=== PATIENT | female | born 1985 ===

== ENCOUNTER 2017-04-29 08:23 | Emergency (ER) | payer OTHER ==
[2017-04-29 08:36] VITALS: O2SAT 100
--- NOTE | 2017-04-29 09:12 | C.PDOC ---
History Of Present Illness 31 year old female presents to ED with complaints of right shoulder pain that began 1 week ago. Patient describes pain as aching, radiates to right neck and upper back. She states pain was mild at first, then it gradually worsened. Patient believes pain is secondary to work and heavy lifting. Patient is right hand dominant. Denies any fall or numbness. Patient states she took Advil with mild relief. Time Seen by Provider: 04/29/17 08:32 Chief Complaint (Nursing): Upper Extremity Problem/Injury History Per: Patient History/Exam Limitations: no limitations Onset/Duration Of Symptoms: Days (7) Current Symptoms Are (Timing): Still Present Quality: Aching Exacerbating Factor(s): Nothing Recent travel outside of the [place]: No Past Medical History Reviewed: Historical Data, Nursing Documentation, Vital Signs Vital Signs: Last Vital Signs Temp 98.5 F 04/29/17 09:46 Pulse 68 04/29/17 09:46 Resp 16 04/29/17 09:46 BP 131/80 04/29/17 09:46 Pulse Ox 100 04/29/17 10:12 - Medical History PMH: Anemia, Asthma, Hypothyroidism Surgical History: No Surg Hx Family History: States: Unknown Family Hx - Social History Hx Tobacco Use: No Hx Alcohol Use: Yes Hx Substance Use: No - Immunization History Hx Tetanus Toxoid Vaccination: No Hx Influenza Vaccination: No Hx Pneumococcal Vaccination: No Review Of Systems Constitutional: Negative for: Fever, Chills Cardiovascular: Negative for: Chest Pain Gastrointestinal: Negative for: Nausea, Vomiting, Diarrhea Musculoskeletal: Positive for: Shoulder Pain (Right; radiating to right neck and upper back) Neurological: Negative for: Weakness, Numbness Physical Exam - Physical Exam Appears: Well, Non-toxic, No Acute Distress Skin: Normal Color, Warm, Dry Head: Atraumatic, Normacephalic Eye(s): bilateral: Normal Inspection Oral Mucosa: Moist Neck: Normal ROM, Supple Chest: Symmetrical, No Tenderness Cardiovascular: Rhythm Regular Respiratory: No Rales, No Rhonchi, No Wheezing Gastrointestinal/Abdominal: Soft, No Tenderness Extremity: Tenderness (right trapezius muscle and right lateral shoulder), No Deformity (right arm), No Swelling, Other (Pain with abduction ) Pulses: Right Radial: Normal Neurological/Psych: Oriented x3, Normal Speech Gait: Steady ED Course And Treatment O2 Sat by Pulse Oximetry: 100 (RA) Pulse Ox Interpretation: Normal - Other Rad Right Shoulder X-Ray X-Ray: Viewed By Me, Read By Radiologist Interpretation: PROCEDURE: Radiographs of the Right Shoulder. HISTORY: pain right shoulder x 1 week. COMPARISON: No prior. FINDINGS: BONES: Normal. No fracture. JOINTS: Normal. Glenohumeral and acromioclavicular joints preserved. No osteoarthritis. SOFT TISSUES: Normal. OTHER FINDINGS: None. IMPRESSION: No evidence of acute fracture or dislocation. Medical Decision Making Medical Decision Making: Ordered X-Ray of right shoulder. Administered Toradol and Flexeril. Shoulder xray was normal, no arthritic changes, fracture or dislocation. Arm sling applied by RN Patient reported pain improving. Recommend motrin and flexeril as needed. Advised to follow up with orthopedic if pain persists. Disposition Counseled Patient/Family Regarding: Diagnosis, Need For Followup, Rx Given - Disposition Referrals: Bernard Mcgill MD [Staff Provider] - Disposition: HOME/ ROUTINE Disposition Time: 09:45 Condition: STABLE Additional Instructions: Your prescription was sent to [facility]'s pharmacy Please apply ice to area 15 minutes three times a day. Take Motrin as needed for pain every 6 hours, with food to not upset stomach. Follow up with orthopedic if pain persists over one week. 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 - Scribe Statement The provider has reviewed the documentation as recorded by the Karla Pires All medical record entries made by the Abidaibkentrell were at my direction and personally dictated by me. I have reviewed the chart and agree that the record accurately reflects my personal performance of the history, physical exam, medical decision making, and the department course for this patient. I have also personally directed, reviewed, and agree with the discharge instructions and disposition.
[2017-04-29 09:47] VITALS: BP 131/80; PULSE 68; RESP 16; TEMP 98.5
--- NOTE | 2017-04-29 10:06 | RAD ---
PROCEDURE: Radiographs of the Right Shoulder HISTORY: pain right shoulder x 1 week COMPARISON: No prior. FINDINGS: BONES: Normal. No fracture. JOINTS: Normal. Glenohumeral and acromioclavicular joints preserved. No osteoarthritis. SOFT TISSUES: Normal. OTHER FINDINGS: None. IMPRESSION: No evidence of acute fracture or dislocation.
== END 2017-04-29 10:12 | disposition home or self-care (01) ==
LOC: C.ER 08:23
DX: S43.401A Unspecified sprain of right shoulder joint, initial encounter (principal); X58.XXXA Exposure to other specified factors, initial encounter; Y92.89 Other specified places as the place of occurrence of the external cause
CPT/HCPCS: 73030; 96372; 99285; J1885

== ENCOUNTER 2017-07-13 05:42 | Emergency (ER) | payer OTHER ==
--- NOTE | 2017-07-13 06:29 | C.PDOC ---
History Of Present Illness <Karen Henao - Last Filed: 07/13/17 07:22> <Kathy Rincon - Last Filed: 07/13/17 16:56> 31yo female, with history of asthma and hypothyroidsm, non-compliant with medication, presents to ED with complaints of a productive cough with green sputum, present for the past 2 weeks. She also reports associated sore throat, but denies any fever, chills, chest pain, shortness of breath or vomiting. Patient has no other medical complaints. (Karen Henao) History Per: Patient History/Exam Limitations: no limitations Onset/Duration Of Symptoms: Waxing/Waning, Persistent (2 weeks) Location Of Pain: Throat Associated Symptoms: Sore Throat, Cough, Sputum (green). denies: Vomiting <Karen Henao - Last Filed: 07/13/17 07:22> <Kathy Rincon - Last Filed: 07/13/17 16:56> Time Seen by Provider: 07/13/17 06:03 Chief Complaint (Nursing): Cough, Cold, Congestion Past Medical History Reviewed: Historical Data, Nursing Documentation, Vital Signs - Medical History PMH: Anemia, Asthma, Hypothyroidism Surgical History: No Surg Hx Family History: States: Unknown Family Hx - Social History Hx Tobacco Use: No Hx Alcohol Use: Yes Hx Substance Use: No - Immunization History Hx Tetanus Toxoid Vaccination: No Hx Influenza Vaccination: No Hx Pneumococcal Vaccination: No <Karen Henao - Last Filed: 07/13/17 07:22> Vital Signs: Last Vital Signs Temp 97.8 F 07/13/17 08:04 Pulse 73 07/13/17 08:04 Resp 19 07/13/17 08:04 BP 134/86 07/13/17 08:04 Pulse Ox 100 07/13/17 08:04 Review Of Systems Constitutional: Negative for: Fever, Chills Cardiovascular: Negative for: Chest Pain Respiratory: Positive for: Cough, Sputum (green). Negative for: Shortness of Breath Gastrointestinal: Negative for: Vomiting <Karen Henao - Last Filed: 07/13/17 07:22> Physical Exam - Physical Exam Appears: Non-toxic, No Acute Distress, Other (obese) Skin: Normal Color, Warm, Dry Head: Atraumatic, Normacephalic Eye(s): bilateral: Normal Inspection, PERRL Oral Mucosa: Moist Throat: Erythema, No Exudate, Other (bilateral tonsils enlarged) Neck: Normal ROM, Supple Chest: Symmetrical Cardiovascular: Rhythm Regular Respiratory: Decreased Breath Sounds (right base), No Wheezing, Other ( rhoncherous cough) Gastrointestinal/Abdominal: Normal Exam, Soft, No Tenderness Neurological/Psych: Oriented x3 <Karen Henao - Last Filed: 07/13/17 07:22> ED Course And Treatment O2 Sat by Pulse Oximetry: 98 (RA) Pulse Ox Interpretation: Normal Progress Note: CXR, duoneb, and rapid strep ordered. <Karen Henao - Last Filed: 07/13/17 07:22> Medical Decision Making <Karen Henao - Last Filed: 07/13/17 07:22> <Kathy Rincon - Last Filed: 07/13/17 16:56> Medical Decision Making: Sign out received at 0700, pending CXR and re-eval. CXR is negative for infiltrates. On re-exam, the patient reports improvement of symptoms. Lungs are CTA, heart is RRR, abdomen is soft, non-tender and the patient is tolerating PO well. ambulatory in the ED with steady gait. Follow up with the medical doctor within 1-2 days. Return if worsened. (Kathy Rincon) Disposition <Karen Henao - Last Filed: 07/13/17 07:22> - Disposition Disposition Time: 08:01 <Kathy Rincon - Last Filed: 07/13/17 16:56> - Disposition Referrals: Hilario Pulido MD [Staff Provider] - Disposition: HOME/ ROUTINE Condition: GOOD Additional Instructions: Follow up with the medical doctor within 1-2 days. 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 - Scribe Statement The provider has reviewed the documentation as recorded by the Scribe (Glendy Hall) <Karen Henao - Last Filed: 07/13/17 07:22> <Kathy Rincon - Last Filed: 07/13/17 16:56> - Scribe Statement Provider Attestation: All medical record entries made by the Scribe were at my direction and personally dictated by me. I have reviewed the chart and agree that the record accurately reflects my personal performance of the history, physical exam, medical decision making, and the department course for this patient. I have also personally directed, reviewed, and agree with the discharge instructions and disposition. (Karen Henao) Physician Patient Turnover Patient Signed Over To: Kathy Rincon Handoff Comments: f/u cxr, re-eval lungs. likely d/c with antiboitcs <Karen Henao - Last Filed: 07/13/17 07:22>
[2017-07-13] MEDS ORDERED: Albuterol-Ipratrop 3 mg / 0.5 (3 ml) UD ONE (06:33)
[2017-07-13] MEDS ORDERED: Albuterol-Ipratrop 3 mg / 0.5 (3 ml) UD INH SCH (08:00)
[2017-07-13 08:06] VITALS: BP 134/86; PULSE 73; RESP 19; TEMP 97.8
--- NOTE | 2017-07-13 08:11 | RAD ---
HISTORY: cough green sputum, dec bs right base COMPARISON: 08/30/2013 TECHNIQUE: Chest PA and lateral FINDINGS: LUNGS: No active pulmonary disease. PLEURA: No significant pleural effusion identified. No pneumothorax apparent. CARDIOVASCULAR: Normal. OSSEOUS STRUCTURES: No significant abnormalities. VISUALIZED UPPER ABDOMEN: Normal. OTHER FINDINGS: None. IMPRESSION: No active disease.
[2017-07-14 12:23] VITALS: O2SAT 98
== END 2017-07-13 08:11 | disposition home or self-care (01) ==
LOC: C.ER 05:42
DX: J40 Bronchitis, not specified as acute or chronic (principal)

== ENCOUNTER 2017-07-17 21:02 | Emergency (ER) | payer OTHER ==
[2017-07-17] MEDS ORDERED: Albuterol-Ipratrop 3 mg / 0.5 (3 ml) UD ONE (23:08)
[2017-07-17] MEDS ORDERED: Albuterol 0.083% Inhal Sol (2.5 mg/3 mL) UD INH STA (23:32)
--- NOTE | 2017-07-17 23:35 | C.PDOC ---
History Of Present Illness Pt is a 31 yo female with known hx asthma who was seen few days ago for same sx.Now with pleuritic CP cough,chest tightness for past few days.Pt took her nebulizer at home without relief Chief Complaint (Nursing): Shortness Of Breath Past Medical History Vital Signs: Last Vital Signs Temp 97.8 F 07/18/17 00:35 Pulse 76 07/18/17 00:35 Resp 16 07/18/17 00:35 BP 120/67 07/18/17 00:35 Pulse Ox 100 07/18/17 00:35 - Medical History PMH: Anemia, Asthma, Hypothyroidism Family History: States: Unknown Family Hx - Social History Hx Tobacco Use: No Hx Alcohol Use: Yes Hx Substance Use: No - Immunization History Hx Tetanus Toxoid Vaccination: No Hx Influenza Vaccination: No Hx Pneumococcal Vaccination: No ED Course And Treatment O2 Sat by Pulse Oximetry: 98 Disposition - Disposition Referrals: [facility] [Outside] Disposition: HOME/ ROUTINE Disposition Time: 08:46 Condition: GOOD Prescriptions: Prednisone [Deltasone] 20 mg PO DAILY #5 tablet Instructions: Asthma in Adults Forms: [facility] (Russian), Work Excuse Print Language: MAURITANIAN - Clinical Impression Clinical Impression: Bronchitis, Asthma
[2017-07-18] MEDS ORDERED: Albuterol-Ipratrop 3 mg / 0.5 (3 ml) UD ONE (00:03)
[2017-07-18 01:01] VITALS: BP 120/67; PULSE 76; RESP 16; TEMP 97.8
[2017-07-18 08:47] VITALS: O2SAT 98
--- NOTE | 2017-07-18 12:42 | CARD ---
APPROVED REPORT EKG Measurement Heart [id number] <Conclusion> Normal sinus rhythm Possible Lateral infarct, age undetermined Abnormal ECG
== END 2017-07-18 00:35 | disposition home or self-care (01) ==
LOC: C.ER 21:02
DX: J45.909 Unspecified asthma, uncomplicated (principal)

== ENCOUNTER 2018-04-16 17:33 | Emergency (ER) | payer OTHER ==
[2018-04-16 17:56] VITALS: BMI 44.9
[2018-04-16 17:57] VITALS: O2SAT 99
[2018-04-16 18:31] VITALS: RESP 20
[2018-04-16 19:58] LABS: BASO % 0.3 % (0.0-2.0); EOS # 0.1 K/uL (0.0-0.7); EOS % 1.1 % (0.0-4.0); HEMOGLOBIN 12.4 g/dL (11.0-16.0); LYMPH # 2.1 K/uL (1.0-4.3); LYMPH % 22.1 % (20.0-40.0); MEAN CELL VOLUME 82.8 fL (81.0-99.0); MEAN CORPUSCULAR HEMOGLOBIN 27.2 pg (27.0-31.0); MEAN CORPUSCULAR HGB CONC 32.8 g/dL (33.0-37.0); MONO # 0.6 K/uL (0.0-0.8); MONO % 6.1 % (0.0-10.0); NEUT # 6.7 K/uL (1.8-7.0); NEUT % 70.4 % (50.0-75.0); RBC 4.55 Mil/uL (3.80-5.20); RED CELL DISTRIBUTION WIDTH 13.5 % (11.5-14.5); WHITE BLOOD COUNT 9.5 K/uL (4.8-10.8)
[2018-04-16 20:10] LABS: ALB/GLOB RATIO 1.1 (1.0-2.1); ALT/SGPT 10 U/L (9-52); AST/SGOT 31 U/L (14-36); BLOOD UREA NITROGEN 14 mg/dL (7-17); CALCIUM 8.7 mg/dl (8.6-10.4); GFR NON-AFRICAN AMERICAN > 60
[2018-04-16 20:27] LABS: INR 1.1; PROTHROMBIN TIME 11.9 SECONDS (9.7-12.2)
--- NOTE | 2018-04-16 20:35 | C.PDOC ---
History Of Present Illness 32 y/o female presents to the ED complaining of sudden-onset left-sided chest pain radiating down her down left arm that began at 16:30 today. Pain is associated with left hand paresthesias, and is described as pressure-like. On discussion, patient notes the symptoms resolved spontaneously prior to evaluation. She denies any SOB, palpitations, abdominal pain, nausea, vomiting, cold sweats, or extremity weakness. Of note patient reports compliance with her synthroid 200mcg per day. Time Seen by Provider: 04/16/18 19:16 Chief Complaint (Nursing): Chest Pain History Per: Patient History/Exam Limitations: no limitations Onset/Duration Of Symptoms: Hrs Current Symptoms Are (Timing): Gone Quality: Pressure Past Medical History Reviewed: Historical Data, Nursing Documentation, Vital Signs Vital Signs: Last Vital Signs Temp 98.3 F 04/16/18 18:28 Pulse 68 04/16/18 18:28 Resp 20 04/16/18 18:28 BP 127/81 04/16/18 18:28 Pulse Ox 99 04/16/18 18:28 - Medical History PMH: Anemia, Asthma, Hypothyroidism Surgical History: No Surg Hx Family History: States: Unknown Family Hx - Social History Hx Tobacco Use: No Hx Alcohol Use: Yes Hx Substance Use: No - Immunization History Hx Tetanus Toxoid Vaccination: No Hx Influenza Vaccination: No Hx Pneumococcal Vaccination: No Review Of Systems Except As Marked, All Systems Reviewed And Found Negative. Constitutional: Negative for: Fever, Chills, Sweats Eyes: Negative for: Vision Change Cardiovascular: Positive for: Chest Pain. Negative for: Palpitations Respiratory: Negative for: Shortness of Breath Gastrointestinal: Negative for: Nausea, Vomiting Musculoskeletal: Positive for: Arm Pain Skin: Negative for: Rash Neurological: Positive for: Other (Paresthesia - left hand). Negative for: We akness, Numbness, Incoordination Physical Exam - Physical Exam Appears: Non-toxic, No Acute Distress, Other (obese female) Skin: Normal Color, Warm, No Diaphoretic Head: Atraumatic, Normacephalic Eye(s): bilateral: Normal Inspection, PERRL, EOMI Neck: Normal ROM Chest: Symmetrical, No Tenderness, No Ecchymosis Cardiovascular: Rhythm Regular, No Murmur Respiratory: Normal Breath Sounds, No Rales, No Rhonchi, No Wheezing Gastrointestinal/Abdominal: Soft, No Tenderness, No Distention Extremity: Bilateral: Atraumatic, Normal Color And Temperature Pulses: Left Radial: Normal, Right Radial: Normal Neurological/Psych: Oriented x3, Normal Speech ED Course And Treatment - Laboratory Results Result Diagrams: 04/16/18 19:46 04/16/18 19:46 Lab Results: PT 11.9 SECONDS (9.7-12.2) 04/16/18 19:46 INR 1.1 04/16/18 19:46 APTT 29 SECONDS (21-34) 04/16/18 19:46 D-Dimer, Quantitative 207 ng/mlDDU (0-243) 04/16/18 19:46 Troponin I < 0.0120 ng/mL (0.00-0.120) 04/16/18 19:46 NT-Pro-B Natriuret Pep 51.0 pg/mL (0-450) 04/16/18 19:46 Total Bilirubin 0.2 mg/dL (0.2-1.3) 04/16/18 19:46 AST 31 U/L (14-36) 04/16/18 19:46 ALT 10 U/L (9-52) 04/16/18 19:46 Alkaline Phosphatase 81 U/L (38-126) 04/16/18 19:46 Total Protein 7.6 g/dL (6.3-8.3) 04/16/18 19:46 Albumin 4.0 g/dL (3.5-5.0) 04/16/18 19:46 Globulin 3.6 gm/dL (2.2-3.9) 04/16/18 19:46 Albumin/Globulin Ratio 1.1 (1.0-2.1) 04/16/18 19:46 Lab Interpretation: Normal (d-dimer 207 wnl, trop/bnp neg.) Urine POC: Negative ECG: Interpreted By Me ECG Rhythm: Sinus Rhythm ECG Interpretation: Normal Rate From EC O2 Sat by Pulse Oximetry: 99 (RA) Pulse Ox Interpretation: Normal - Radiology CXR: Interpreted by Me CXR Interpretation: Yes: No Acute Disease Reevaluation Time: 20:48 Reassessment Condition: Improved Medical Decision Making Medical Decision Making: Impression: 32 y/o with left-sided chest pressure radiating down the left arm, resolved Initial Plan: --Blood work --Urinalysis --EKG --Chest x-ray 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 Disposition Doctor Will See Patient In The: Office Counseled Patient/Family Regarding: Studies Performed, Diagnosis - Disposition Disposition: HOME/ ROUTINE Disposition Time: 20:49 Condition: GOOD Forms: [facility] (Mohawk) - Clinical Impression Clinical Impression: Chest discomfort - Scribe Statement The provider has reviewed the documentation as recorded by the Karla Magana Provider Attestation: All medical record entries made by the Karla were at my direction and personally dictated by me. I have reviewed the chart and agree that the record accurately reflects my personal performance of the history, physical exam, medical decision making, and the department course for this patient. I have also personally directed, reviewed, and agree with the discharge instructions and disposition.
[2018-04-16] MEDS ORDERED: Aspirin 325 mg EC Tablets PO ONE (20:44)
[2018-04-16] MEDS ORDERED: Aspirin 325 mg EC Tablets PO STA (20:44)
[2018-04-16 20:54] VITALS: BP 139/75; PULSE 64; TEMP 98.2
[2018-04-16 21:09] LABS: BARBITURATES, UR NEGATIVE (NEGATIVE); BENZODIAZEPINES, UR NEGATIVE (NEGATIVE); OPIATES, UR NEGATIVE (NEGATIVE); PHENCYCLIDINE, UR NEGATIVE (NEGATIVE)
[2018-04-16 21:12] LABS: HCG,QUALITATIVE URINE NEGATIVE (NEGATIVE)
[2018-04-16 21:15] LABS: SQUAMOUS EPITHIAL 4 /hpf (0-5); URINE BACTERIA RARE (<OCC); URINE BILIRUBIN NEGATIVE (NEGATIVE); URINE BLOOD NEGATIVE (NEGATIVE); URINE CLARITY Clear (Clear); URINE COLOR Yellow (YELLOW); URINE GLUCOSE (UA) NORMAL (Normal); URINE LEUKOCYTE ESTERASE NEG Leu/uL (Negative); URINE PROTEIN NEGATIVE (NEGATIVE); URINE UROBILINOGEN NORMAL mg/dL (0.2-1.0)
--- NOTE | 2018-04-17 10:16 | RAD ---
HISTORY: SOB COMPARISON: Chest x-ray performed 07/13/17 TECHNIQUE: Chest, one view. FINDINGS: Examination limited by habitus and hypoinflation. LUNGS: No focal consolidation. Please note that chest x-ray has limited sensitivity for the detection of pulmonary masses. PLEURA: No significant pleural effusion identified. No definite pneumothorax . CARDIOVASCULAR: Heart size appears within normal limits. No significant atherosclerotic calcification present. OSSEOUS STRUCTURES: No acute osseous abnormality identified. VISUALIZED UPPER ABDOMEN: Unremarkable. OTHER FINDINGS: None. IMPRESSION: No focal consolidation.
--- NOTE | 2018-04-18 14:43 | CARD ---
APPROVED REPORT Date of service: 04/16/2018 EKG Measurement Heart [id number] <Conclusion> Normal sinus rhythm Q wave I - avL noted - probable normal variant. No change from prior EKG of 07/17/2017 Normal EKG for age.
== END 2018-04-16 21:04 | disposition home or self-care (01) ==
LOC: C.ER 17:33
DX: R07.89 Other chest pain (principal)